=== PATIENT | female | born 1955 | race Caucasian/White ===

== ENCOUNTER → 2017-11-03 | Outpatient (CLI) | payer OTHER ==
[~2017-11-03] MED LIST: CYCL10; K-Tab10 MEQ PO; LEVSOD50 PO; Lovastatin20 MG PO; MONT10T PO; NAPR500 PO; PROP10 PO; TRIHYD253B PO
[2017-11-05 16:09] LABS: HPV Genotype 16 Not Detected (NOTDET); HPV Genotype 18 Not Detected (NOTDET)
[2017-11-11 10:37] LABS: HPV High Risk Other Not Detected (NOTDET)
== END | disposition home or self-care (01) ==
LOC: LAB 15:58
PROVIDERS: Obstetrics & Gynecology
DX: Z01.419 Encounter for gynecological examination (general) (routine) without abnormal findings (principal)
CPT/HCPCS: 87624; G0123

== ENCOUNTER → 2023-05-23 | Outpatient (CLI) | payer OTHER | END | disposition home or self-care (01) | LOC: LAB 16:13 | DX: R60.0 Localized edema (principal) ==